=== PATIENT | female | born 1940 | race Caucasian/White ===

== ENCOUNTER 2017-07-04 18:13 | Emergency (ER) | payer MEDICARE, BC ==
[2017-07-04] MEDS ORDERED: Sodium Chloride 0.9% 10 ML Syringe FLUSH PRN ×2 (18:43→20:35)
--- NOTE | 2017-07-04 18:55 | EDM.PDOC ---
ED HPI GENERAL MEDICAL PROBLEM - General Chief Complaint: Cardiovascular Problem Stated Complaint: RAPID HEART BEAT Time Seen by Provider: 07/04/17 18:28 Source of Information: Reports: Patient History Limitations: Reports: No Limitations - History of Present Illness INITIAL COMMENTS - FREE TEXT/NARRATIVE: 77-year-old female presents for evaluation and treatment of perceived tachycardia. Patient reports that she felt she had a rapid heartbeat from around 14:00 today to 16:30. Patient denies any current symptoms. She reported associated symptoms of dizziness, lightheadedness and nausea. She states that she checked her blood pressure and it was 95/50. She did feel short of breath earlier and felt this was worse than normal. She also reports that she felt she had a heavy chest but denies any chest pain. She denies any syncope or vomiting. She currently has no chest discomfort, nausea, or lightheadedness.. Patient denies any recent illness. She denies any recent fevers, cough or cold symptoms. Patient has a past cardiac history remarkable for a triple bypass in 2004. She states that she has A. fib and congestive heart failure. She is currently on aspirin for her atrial fibrillation. Currently sees a program control analyst in [place]. Last visit was in February. Reports that she has echocardiograms done yearly. Last echocardiogram done was in February. Primary care provider is Dr. Hernandez. Onset: Today (2pm to 4:30pm) - Related Data Allergies Allergy/AdvReac Type Severity Reaction Status Date / Time No Known Allergies Allergy Verified 07/04/17 18:21 Home Meds: Home Meds Anastrozole [Arimidex] 1 mg PO BID 07/04/17 [History] Aspirin [Halfprin] 81 mg PO BEDTIME 07/04/17 [History] Calcium Carb & Citrate/Vit D3 [Calcium + D3 ER Tablet] 1 tab PO BID 07/04/17 [ History] Ezetimibe [Zetia] 10 mg PO DAILY 07/04/17 [History] Ferrous Sulfate [Iron] 650 mg PO TID 07/04/17 [History] Fish Oil/[place]-3 Fatty Acids [Fish Oil 1,000 MG] 1 gram PO BID 07/04/17 [History ] Hydroxyurea 1,000 mg PO ASDIRECTED 07/04/17 [History] Metoprolol Succinate [Toprol XL] 25 mg PO BEDTIME 07/04/17 [History] Mv-Mn/Lutein/Zeax/Bilber/Hb277 [Macular Health Formula Capsule] 1 cap PO DAILY 07/04/17 [History] Olmesartan/Hydrochlorothiazide [Benicar HCT 40-25 MG] 1 tab PO DAILY 07/04/17 [ History] Omeprazole Magnesium [Prilosec Otc] 20 mg PO BID 07/04/17 [History] amLODIPine Besylate [Norvasc] 10 mg PO BEDTIME 07/04/17 [History] atorvaSTATin [Lipitor] 40 mg PO BEDTIME 07/04/17 [History] Past Medical History HEENT History: Reports: Impaired Vision Cardiovascular History: Reports: Afib, Bypass, Heart Failure, High Cholesterol, Hypertension Respiratory History: Reports: Sleep Apnea, SOB Gastrointestinal History: Reports: GERD 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: 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: , Prolapsed Uterus Hematologic History: Reports: Blood Transfusion(s), Other (See Below) Other Hematologic History: high platlets Oncologic (Cancer) History: Reports: Breast - Past Surgical History HEENT Surgical History: Reports: Adenoidectomy, Tonsillectomy Cardiovascular Surgical History: Reports: Coronary Artery Bypass GI Surgical History: Reports: Appendectomy, Other (See Below) Other GI Surgeries/Procedures: rectum repair Female Surgical History: Reports: Other (See Below) Other Female Surgeries/Procedures: Bladder sling Social & Family History - Family History Family Medical History: Noncontributory - Tobacco Use Smoking Status *Q: Never Smoker - Caffeine Use Caffeine Use: Reports: None - Recreational Drug Use Recreational Drug Use: No ED ROS GENERAL - Review of Systems Review Of Systems: See Below Constitutional: Denies: Fever Respiratory: Reports: Shortness of Breath (chronic, no chagne). Denies: Cough Cardiovascular: Reports: Edema (chronic, no change), Lightheadedness (earlier, now resolved). Denies: Chest Pain (reports heaviness earlier, now resolved), Syncope GI/Abdominal: Reports: Nausea (earlier, now resolved). Denies: Vomiting Neurological: Denies: Syncope ED EXAM, GENERAL - Physical Exam Exam: See Below Exam Limited By: No Limitations General Appearance: Alert, WD/WN, Anxious, Obese Ears: Normal External Exam Nose: Normal Inspection Throat/Mouth: Normal Inspection, Normal Lips, Normal Voice, No Airway Compromise Respiratory/Chest: No Respiratory Distress, Lungs Clear, Normal Breath Sounds Cardiovascular: Normal Peripheral Pulses, Regular Rate, Rhythm, Systolic Murmur (grade 3) Peripheral Pulses: 2+: Radial (L), Radial (R) Extremities: Pedal Edema Neurological: Alert, Oriented, Normal Cognition Psychiatric: Normal Affect, Normal Mood, Anxious Skin Exam: Warm, Dry, Normal Color EKG INTERPRETATION EKG Date: 07/04/17 Time: 18:20 Rhythm: NSR Rate (Beats/Min): 65 [place]: Normal P-Wave: Present QRS: Normal ST-T: Normal QT: Normal EKG Interpretation Comments: NR at 65 bpm. No ischemic changes. No LAD. No LVH. Reviewed by myself and Dr. Johnson. Course - Vital Signs Last Recorded V/S: Last Vital Signs Temp 36.2 C 07/04/17 18:17 Pulse 75 07/04/17 18:17 Resp 20 07/04/17 18:17 BP 154/77 H 07/04/17 18:17 Pulse Ox 96 07/04/17 18:17 Orthostatic Blood Pressure [ 154/71 Standing] Orthostatic Blood Pressure [ 152/63 Sitting] Orthostatic Blood Pressure [ 140/61 Supine] - Orders/Labs/Meds Orders: Active Orders 24 hr Category Date Time Status Cardiac Monitoring [RC] . DIRECTED Care 07/04/17 18:40 Active EKG Documentation Completion [RC] ASDIRECTED Care 07/04/17 18:42 Active Holter Monitor 48 Hours [RC] .PRN Care 07/04/17 21:40 Active Orthostatic Vital Signs [RC] ASDIRECTED Care 07/04/17 18:40 Active Peripheral IV Care [RC] . DIRECTED Care 07/04/17 18:43 Active Chest 1V Frontal [CR] Stat Exams 07/04/17 18:40 Taken Chest PE [Ang Chest] [CT] Stat Exams 07/04/17 20:16 Taken Sodium Chloride 0.9% [Normal Saline] 100 ml Med 07/04/17 20:45 Active IV ASDIRECTED Sodium Chloride 0.9% [Saline Flush] Med 07/04/17 18:43 Active 10 ml FLUSH ASDIRECTED PRN Sodium Chloride 0.9% [Saline Flush] Med 07/04/17 20:35 Active 10 ml FLUSH ONETIME PRN Peripheral IV Insertion Adult [OM.PC] Routine Oth 07/04/17 18:43 Ordered EKG 12 Lead [EK] Stat Ther 07/04/17 18:40 Ordered Medication Orders Sodium Chloride (Normal Saline) 100 mls @ 75 mls/hr IV ASDIRECTED KATINA Last Admin: 07/04/17 21:05 Dose: 75 mls/hr Sodium Chloride (Saline Flush) 10 ml FLUSH ASDIRECTED PRN PRN Reason: Keep Vein Open Last Admin: 07/04/17 18:57 Dose: 10 ml Sodium Chloride (Saline Flush) 10 ml FLUSH ONETIME PRN PRN Reason: IV FLUSH Last Admin: 07/04/17 21:05 Dose: 10 ml Labs: Laboratory Tests 07/04/17 07/04/17 07/04/17 Range/Units 19:05 19:05 19:39 WBC 4.07 (3.98-10.04) K/mm3 RBC 2.67 L (3.98-5.22) M/mm3 Hgb 11.2 (11.2-15.7) gm/L Hct 32.2 L (34.1-44.9) % MCV 120.6 H (79.4-94.8) fl MCH 41.9 H (25.6-32.2) pg MCHC 34.8 (32.2-35.5) g/dl RDW Std Deviation 51.9 H (36.4-46.3) fL Plt Count 259 (182-369) K/mm3 MPV 10.2 (9.4-12.3) fl Neutrophils % (Manual) 72 H (40-60) % Band Neutrophils % 0 (0-10) % Lymphocytes % (Manual) 14 L (20-40) % Atypical Lymphs % 0 % Monocytes % (Manual) 13 H (2-10) % Eosinophils % (Manual) 1 (0.7-5.8) % Basophils % (Manual) 0 L (0.1-1.2) Platelet Estimate Adequate Plt Morphology Comment Normal Poikilocytosis 2+ moderate Stomatocytes 1+ slight RBC Morph Comment Not Reportable Sodium 144 (136-145) mEq/L Potassium 3.5 (3.5-5.1) mEq/L Chloride 106 (98-107) mEq/L Carbon Dioxide 29 (21-32) mEq/L Anion Gap 12.5 (5-15) BUN 17 (7-18) mg/dL Creatinine 0.8 (0.55-1.02) mg/dL Est Cr Clr Drug Dosing 54.67 mL/min Estimated GFR (MDRD) > 60 (>60) mL/min BUN/Creatinine Ratio 21.3 H (14-18) Glucose 123 H (83-115) mg/dL Calcium 8.7 (8.5-10.1) mg/dL Magnesium 2.0 (1.8-2.4) mg/dl Total Bilirubin 0.4 (0.2-1.0) mg/dL AST 16 (15-37) U/L ALT 26 (14-59) U/L Alkaline Phosphatase 54 (46-116) U/L Troponin I < 0.017 (0.00-0.056) ng/mL NT-Pro-B Natriuret Pep 254 (0-450) pg/mL Total Protein 6.5 (6.4-8.2) g/dl Albumin 3.2 L (3.4-5.0) g/dl Globulin 3.3 gm/dL Albumin/Globulin Ratio 1.0 (1-2) TSH 3rd Generation 1.597 (0.358-3.74) uIU/mL Meds: Medications Generic Name Dose Route Start Last Admin Trade Name Freq PRN Reason Stop Dose Admin Sodium Chloride 100 mls @ 75 mls/hr 07/04/17 20:45 07/04/17 21:05 Normal Saline IV 75 mls/hr ASDIRECTED KATINA Administration Sodium Chloride 10 ml 07/04/17 18:43 07/04/17 18:57 Saline Flush FLUSH 10 ml ASDIRECTED PRN Administration Keep Vein Open Sodium Chloride 10 ml 07/04/17 20:35 07/04/17 21:05 Saline Flush FLUSH 10 ml ONETIME PRN Administration IV FLUSH Discontinued Medications Generic Name Dose Route Start Last Admin Trade Name Freq PRN Reason Stop Dose Admin Iopamidol 100 ml 07/04/17 20:35 07/04/17 21:05 Isovue-370 (76%) IVPUSH 07/04/17 20:36 80 ml ONETIME ONE Administration - Radiology Interpretation Free Text/Narrative:: chest xray shows cardiomegaly. Large hiatal hernia. clips/markers to the right breast from breast cancer. CT PE impression per [facility]: 1. 11.9cm hiatal hernia. 2. Ectasia of the ascending thoracic aorta which measures 4.5cm in diameter. There is no sign of aortic dissection or thrombus. 3. 5 mm noncalcified pulmonary nodule in the right upper lobe. For low risk patients, no follow-up is necessary. For high-risk patients (smoking history or other known risk factors) an optional chest CT at 12 months could be performed. 4. Moderate atherosclerotic calcification of the coronary arteries. The heart demonstrates diffuse enlargement. Prior CABG. 5. No signs of pulmonary embolus. CT Results Date: 07/04/17 - Re-Assessments/Exams Free Text/Narrative Re-Assessment/Exam: 07/04/17 20:18 Offered patient medication for pain and nausea during her ER stay. She declined. Reviewed the lab and imaging results the patient. We were then discussing medications. She reports that she is on a new breast cancer medication called arimidex. She questions if this is causing her symptoms. Review of side effects states that this medication is at increased risk for PE.. Her vital signs have been normal while in the Heart rate mid 50s to 60s. However , with her cancer diagnosis cannot rule out this time. CT pulmonary and exam ordered. 07/04/17 21:[address] results with patient. I will have her follow up with her primary care provider regarding this 5 mm pulmonary nodule in the right upper lobe. Also have follow-up with results for 48 hour Holter monitor. We will discharge her home. She is instructed to return to the ER for symptoms change or worsen. Departure - Departure Time of Disposition: 21:39 Disposition: Home, Self-Care 01 Condition: Fair Clinical Impression: Heart palpitations Instructions: Palpitations, [id number] Referrals: Benjamin Hernandez MD [Primary Care Provider] - Forms: ED Department Discharge Additional Instructions: 48 hour Holter monitor as directed. Follow-up with Dr. Hernandez next week. Continue with your current plan of care. Please return to the ER immediately if your symptoms change or worsen. In particular, would like to see for syncope, chest pain or any other concerning symptom. - My Orders Last 24 Hours: My Active Orders 07/04/17 18:40 Cardiac Monitoring [RC] . DIRECTED Orthostatic Vital Signs [RC] ASDIRECTED Chest 1V Frontal [CR] Stat EKG 12 Lead [EK] Stat 07/04/17 18:42 EKG Documentation Completion [RC] ASDIRECTED 07/04/17 18:43 Peripheral IV Care [RC] . DIRECTED Sodium Chloride 0.9% [Saline Flush] 10 ml FLUSH ASDIRECTED PRN Peripheral IV Insertion Adult [OM.PC] Routine 07/04/17 20:16 Chest PE [Ang Chest] [CT] Stat 07/04/17 20:35 Sodium Chloride 0.9% [Saline Flush] 10 ml FLUSH ONETIME PRN 07/04/17 20:45 Sodium Chloride 0.9% [Normal Saline] 100 ml IV ASDIRECTED 07/04/17 21:40 Holter Monitor 48 Hours [RC] .PRN - Assessment/Plan Last 24 Hours: My Active Orders 07/04/17 18:40 Cardiac Monitoring [RC] . DIRECTED Orthostatic Vital Signs [RC] ASDIRECTED Chest 1V Frontal [CR] Stat EKG 12 Lead [EK] Stat 07/04/17 18:42 EKG Documentation Completion [RC] ASDIRECTED 07/04/17 18:43 Peripheral IV Care [RC] . DIRECTED Sodium Chloride 0.9% [Saline Flush] 10 ml FLUSH ASDIRECTED PRN Peripheral IV Insertion Adult [OM.PC] Routine 07/04/17 20:16 Chest PE [Ang Chest] [CT] Stat 07/04/17 20:35 Sodium Chloride 0.9% [Saline Flush] 10 ml FLUSH ONETIME PRN 07/04/17 20:45 Sodium Chloride 0.9% [Normal Saline] 100 ml IV ASDIRECTED 07/04/17 21:40 Holter Monitor 48 Hours [RC] .PRN
[2017-07-04] MEDS ORDERED: Iopamidol 755 Mg/ML 100 ML Bottle IVPUSH ONE (20:35)
[2017-07-04] MEDS ORDERED: Sodium Chloride 0.9% 100 ML IV SCH (20:45)
--- NOTE | 2017-07-05 07:29 | CR ---
Chest: Portable view of the chest was obtained. Comparison: No prior chest x-ray. Heart is enlarged. Large hiatal hernia is noted. Sternotomy is noted. Lungs are clear. Bony structures are grossly intact. Impression: 1. Mild cardiomegaly and large hiatal hernia. Diagnostic code #2
--- NOTE | 2017-07-05 07:29 | CT ---
CT chest Technique: Multiple axial sections were obtained from above the dome of the diaphragm inferiorly through the pubic symphysis. Intravenous contrast was utilized. Study has been performed as a pulmonary angiogram protocol. Comparison: No prior chest CT, prior chest x-ray performed earlier on the same day. Findings: Pulmonary arteries are moderately well-opacified. No filling defects are seen to indicate pulmonary embolism. Mediastinum and hilar regions show no adenopathy or mass. Atherosclerotic change noted within the thoracic aorta. Ascending aorta is somewhat ectatic with AP dimension of 4.5 cm. Moderate coronary artery calcification is seen. Large hiatal hernia is noted. Heart is enlarged. Visualized upper abdominal structures appear within normal limits. Small noncalcified nodule noted within the right middle lobe measuring about 5 mm. Lungs otherwise are clear. Bone window settings were reviewed which appear within normal limits for the patient's age. Impression: 1. No findings of pulmonary embolism. 2. Small right middle lobe nodule. If patient is a smoker, recommend repeat noncontrast chest CT in one year. This can be ignored if patient is not a smoker. 3. Other incidental findings as noted above. Nothing acute seen on CT study of the chest. Diagnostic code #9 I agree with preliminary report issued by [facility] ([facility] preliminary report dictated on 07/04/17, 10:29 PM Central Time)
== END 2017-07-04 22:01 | disposition home or self-care (01) ==
LOC: JD.ED 18:13
DX: R00.2 Palpitations (principal); I11.0 Hypertensive heart disease with heart failure; I50.9 Heart failure, unspecified; Z79.82 Long term (current) use of aspirin; Z79.899 Other long term (current) drug therapy
CPT/HCPCS: 36415; 71045; 71275; 80053; 83735; 83880; 84443; 84484; 85025; 93005; 93225; 93226; 99285; J7030; J7050; Q9967; 93010; 99284

== ENCOUNTER 2017-09-14 10:37 | Observation (INO) | payer MEDICARE, BC ==
[2017-09-14] MEDS ORDERED: Pantoprazole 40 MG Vial IVPUSH ONE (11:29)
[2017-09-14] MEDS ORDERED: Pantoprazole 80 MG in Sodium Chloride 0.9% 100 ML IV SCH (11:30)
--- NOTE | 2017-09-14 11:36 | EDM.PDOC ---
ED HPI GENERAL MEDICAL PROBLEM - General Chief Complaint: Abdominal Pain Stated Complaint: INTERNAL BLEEDING/SENT BY DR HERNANDEZ Time Seen by Provider: 09/14/17 10:45 - History of Present Illness INITIAL COMMENTS - FREE TEXT/NARRATIVE: Contacted by Dr. Hernandez at 10:09 that he was sending the patient in to be admitted. 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 She was seen in this ED in June 2017 for lightheadedness. A subsequent Holter monitor was negative. The patient in follow-up with Dr. Hernandez today with a complaint of lightheadedness, black stools, lower abdominal pain, the sensation that her heart is racing, and nausea without emesis, since yesterday. She also reports 2 days of dyspnea on exertion. No recent chest pain. No prior similar symptoms. Dr. Hernandez indicated that the patient's blood pressure remained stable between lying and standing, but that her heart rate increased. A CBC found her hemoglobin depressed at 8.0, hematocrit 23.5. Her hemoglobin was 11.5 in April 2017. CMP is unremarkable with exception of a BUN elevated at 40. Stool was melenic and heme positive on rectal exam. Dr. Flores was contacted, confirming that she is able to perform both EGD and colonoscopy. Here in the ED, the patient is found to be hemodynamically stable and afebrile. - Related Data Allergies Allergy/AdvReac Type Severity Reaction Status Date / Time No Known Allergies Allergy Verified 09/14/17 10:50 Home Meds: Home Meds Anastrozole [Arimidex] 1 mg PO BEDTIME 07/04/17 [History] Aspirin [Halfprin] 81 mg PO BEDTIME 07/04/17 [History] Calcium Carb & Citrate/Vit D3 [Calcium + D3 ER Tablet] 1 tab PO BID 07/04/17 [ History] Ezetimibe [Zetia] 10 mg PO DAILY 07/04/17 [History] Ferrous Sulfate [Iron] 325 mg PO BEDTIME 07/04/17 [History] Fish Oil/[place]-3 Fatty Acids [Fish Oil 1,000 MG] 1 gram PO DAILY 07/04/17 [ History] Hydroxyurea 1,000 mg PO Q48H 07/04/17 [History] Metoprolol Succinate [Toprol XL] 50 mg PO BEDTIME 07/04/17 [History] Mv-Mn/Lutein/Zeax/Bilber/Hb277 [Macular Health Formula Capsule] 1 cap PO DAILY 07/04/17 [History] Olmesartan/Hydrochlorothiazide [Benicar HCT 40-25 MG] 1 tab PO DAILY 07/04/17 [ History] Omeprazole Magnesium [Prilosec Otc] 20 mg PO BID 07/04/17 [History] amLODIPine Besylate [Norvasc] 10 mg PO BEDTIME 07/04/17 [History] atorvaSTATin [Lipitor] 40 mg PO BEDTIME 07/04/17 [History] Hydroxyurea [Hydrea] 1,500 mg PO Q48H 09/14/17 [History] Triamcinolone Acetonide [Kenalog 0.1% Crm] 1 applic TOP BID 09/14/17 [History] Past Medical History HEENT History: Reports: Impaired Vision Cardiovascular History: Reports: CAD, High Cholesterol, Hypertension Respiratory History: Reports: Sleep Apnea (on nightly CPAP) Gastrointestinal History: Reports: GERD 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: , Prolapsed Uterus Endocrine/Metabolic History: Reports: Obesity/BMI 30+ Hematologic History: Reports: Blood Transfusion(s), Other (See Below) ( Essential thrombocytosis) Oncologic (Cancer) History: Reports: Breast (right) - Past Surgical History HEENT Surgical History: Reports: Adenoidectomy, Tonsillectomy Cardiovascular Surgical History: Reports: Coronary Artery Bypass (x 3 vessel, 2004) GI Surgical History: Reports: Appendectomy Female Surgical History: Reports: Other (See Below) (Bladder suspension) Oncologic Surgical History: Reports: Lumpectomy (right, + RTx) Social & Family History - Family History Family Medical History: Noncontributory - Tobacco Use Smoking Status *Q: Never Smoker Second Hand Smoke Exposure: No - Caffeine Use Caffeine Use: Reports: Tea - Alcohol Use Alcohol Use History: No - Recreational Drug Use Recreational Drug Use: No - Living Situation & Occupation Living situation: Reports: , with Spouse Occupation: Retired ED ROS GENERAL - Review of Systems Review Of Systems: ROS reveals no pertinent complaints other than HPI. ED EXAM, GI/ABD - Physical Exam Exam: See Below Exam Limited By: No Limitations General Appearance: Alert, WD/WN, No Apparent Distress Eyes: Bilateral: Normal Appearance, EOMI Ears: Normal External Exam, Hearing Grossly Normal Nose: Normal Inspection, No Blood Throat/Mouth: Normal Inspection, Normal Lips, Normal Voice, No Airway Compromise Head: Atraumatic, Normocephalic Neck: Normal Inspection, Full Range of Motion Respiratory/Chest: No Respiratory Distress, Lungs Clear, Normal Breath Sounds, No Accessory Muscle Use Cardiovascular: Normal Peripheral Pulses, Regular Rate, Rhythm, No Gallop, No JVD, No Murmur, No Rub GI/Abdominal Exam: Normal Bowel Sounds, Soft, Non-Tender, No Organomegaly, No Distention, No Abnormal Bruit, No Mass, Other (Obese) (Female) Exam: Deferred Back Exam: Normal Inspection, Full Range of Motion, NT Extremities: Normal Inspection, Normal Range of Motion, No Pedal Edema, Normal Capillary Refill Neurological: Alert, Oriented, Normal Cognition, No Motor/Sensory Deficits Psychiatric: Normal Affect Skin Exam: Warm, Dry, Intact, Normal Color, No Rash Course - Vital Signs Last Recorded V/S: Last Vital Signs Temp 36.1 C 09/14/17 10:47 Pulse 75 09/14/17 10:47 Resp 18 09/14/17 10:47 BP 149/66 H 09/14/17 10:47 Pulse Ox 98 09/14/17 10:47 - Orders/Labs/Meds Orders: Active Orders 24 hr Category Date Time Status TYPE AND SCREEN [BBK] Stat Lab 09/14/17 11:31 Ordered Pantoprazole [ProTONIX IV] 80 mg Med 09/14/17 11:30 Ordered Sodium Chloride 0.9% [Normal Saline] 100 ml IV Q10H Medication Orders Pantoprazole Sodium 80 mg/ (Sodium Chloride) 100 mls @ 10 mls/hr IV Q10H KATINA Meds: Medications Generic Name Dose Route Start Last Admin Trade Name Freq PRN Reason Stop Dose Admin Pantoprazole Sodium 80 mg/ 100 mls @ 10 mls/hr 09/14/17 11:30 Sodium Chloride IV Q10H KATINA 8 MG/HR Discontinued Medications Generic Name Dose Route Start Last Admin Trade Name Freq PRN Reason Stop Dose Admin Pantoprazole Sodium 80 mg 09/14/17 11:29 Protonix Iv IVPUSH 09/14/17 11:30 .BOLUS ONE - Re-Assessments/Exams Free Text/Narrative Re-Assessment/Exam: 09/14/17 11:[address] Chavira at 11:25. She accepts the patient for admission. She would like us to type and screen the patient. 09/14/17 11:39 Protonix 80 mg IVP followed by 8 mg/hr drip has been ordered. The patient will receive 2 large-bore IVs prior to going to the floor. 09/14/17 11:[address] Flores, who is in-house. She would like to take the patient to the OR for EGD right away. 09/14/17 11:46 Dr. Chavira updated on the above plan. Departure - Departure Time of Disposition: 11:32 Disposition: Admitted As Inpatient 68 Condition: Fair Clinical Impression: Upper GI bleed, Anemia - Discharge Information - My Orders Last 24 Hours: My Active Orders 09/14/17 11:30 Pantoprazole [ProTONIX IV] 80 mg Sodium Chloride 0.9% [Normal Saline] 100 ml IV Q10H 09/14/17 11:31 TYPE AND SCREEN [BBK] Stat - Assessment/Plan Last 24 Hours: My Active Orders 09/14/17 11:30 Pantoprazole [ProTONIX IV] 80 mg Sodium Chloride 0.9% [Normal Saline] 100 ml IV Q10H 09/14/17 11:31 TYPE AND SCREEN [BBK] Stat
--- NOTE | 2017-09-14 12:00 | PCM.PREANE ---
Preanesthetic Assessment - Procedure Proposed Procedure: Patient saw dr. Hernandez today for normal visit. Complains of dizziness and black tarry stools. Dr. Flores here seeing patient. - Anesthesia/Transfusion/Family Hx Type of Anesthesia Reaction: Excessive Nausea/Vomiting Family History of Anesthesia Reaction: No Transfusion History: Prior Transfusion Without Reaction - Review of Systems General: Fatigue Pulmonary: Shortness of Breath (since cabg) Cardiovascular: No Symptoms Gastrointestinal: No Symptoms, Diarrhea (loose stools yesterday) Neurological: No Symptoms - Physical Assessment NPO Status Date: 09/14/17 NPO Status Time: 08:00 (orange juice, egg toast) O2 Sat by Pulse Oximetry: 98 Respiratory Rate: 18 Vital Signs: Last Vital Signs Temp 97 F 09/14/17 10:47 Pulse 75 09/14/17 10:47 Resp 18 09/14/17 10:47 BP 149/66 H 09/14/17 10:47 Pulse Ox 98 09/14/17 10:47 Height: 5 ft 5 in Weight: 97.522 kg ASA Class: 3E Mental Status: Alert & Oriented x3 Airway Class: Mallampati = 1 Dentition: Reports: Broken Tooth/Teeth, Missing Tooth/Teeth Thyro-Mental Finger Breadths: 3 Mouth Opening Finger Breadths: 3 ROM/Head Extension: Full Lungs: Clear to Auscultation, Normal Respiratory Effort Cardiovascular: Regular Rate, Regular Rhythm - Allergies Allergies/Adverse Reactions: Allergies Allergy/AdvReac Type Severity Reaction Status Date / Time No Known Allergies Allergy Verified 09/14/17 10:50 - Blood Blood Available: Yes - Anesthesia Plan Beta Dayday: Metoprolol Med Last Dose Date: 09/13/17 Med Last Dose Time: 20:00 - Acknowledgements Anesthesia Type Planned: MAC Pt an Appropriate Candidate for the Planned Anesthesia: Yes Alternatives and Risks of Anesthesia Discussed w Pt/Guardian: Yes Pt/Guardian Understands and Agrees with Anesthesia Plan: Yes PreAnesthesia Questionnaire HEENT History: Reports: Impaired Vision Cardiovascular History: Reports: CAD, High Cholesterol, Hypertension Respiratory History: Reports: Sleep Apnea (on nightly CPAP) Gastrointestinal History: Reports: GERD 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: Reports: , Prolapsed Uterus Endocrine/Metabolic History: Reports: Obesity/BMI 30+ Hematologic History: Reports: Blood Transfusion(s), Other (See Below) ( Essential thrombocytosis) Other Hematologic History: high platlets Oncologic (Cancer) History: Reports: Breast (right- radiation and surgery) - Past Surgical History HEENT Surgical History: Reports: Adenoidectomy, Tonsillectomy Cardiovascular Surgical History: Reports: Coronary Artery Bypass (x 3 vessel, 2005) GI Surgical History: Reports: Appendectomy Female Surgical History: Reports: Other (See Below) (Bladder suspension) Oncologic Surgical History: Reports: Lumpectomy (right, + RTx) - SUBSTANCE USE Smoking Status *Q: Never Smoker Tobacco Use Within Last Twelve Months: No Second Hand Smoke Exposure: No Days Per Week of Alcohol Use: 0 Recreational Drug Use History: No - HOME MEDS Home Medications: Home Meds Anastrozole [Arimidex] 1 mg PO BEDTIME 07/04/17 [History] Aspirin [Halfprin] 81 mg PO BEDTIME 07/04/17 [History] Calcium Carb & Citrate/Vit D3 [Calcium + D3 ER Tablet] 1 tab PO BID 07/04/17 [ History] Ezetimibe [Zetia] 10 mg PO DAILY 07/04/17 [History] Ferrous Sulfate [Iron] 325 mg PO BEDTIME 07/04/17 [History] Fish Oil/[place]-3 Fatty Acids [Fish Oil 1,000 MG] 1 gram PO DAILY 07/04/17 [ History] Hydroxyurea 1,000 mg PO Q48H 07/04/17 [History] Metoprolol Succinate [Toprol XL] 50 mg PO BEDTIME 07/04/17 [History] Mv-Mn/Lutein/Zeax/Bilber/Hb277 [Macular Health Formula Capsule] 1 cap PO DAILY 07/04/17 [History] Olmesartan/Hydrochlorothiazide [Benicar HCT 40-25 MG] 1 tab PO DAILY 07/04/17 [ History] Omeprazole Magnesium [Prilosec Otc] 20 mg PO BID 07/04/17 [History] amLODIPine Besylate [Norvasc] 10 mg PO BEDTIME 07/04/17 [History] atorvaSTATin [Lipitor] 40 mg PO BEDTIME 07/04/17 [History] Hydroxyurea [Hydrea] 1,500 mg PO Q48H 09/14/17 [History] Triamcinolone Acetonide [Kenalog 0.1% Crm] 1 applic TOP BID 09/14/17 [History] - CURRENT (IN HOUSE) MEDS Current Meds: Current Medications Pantoprazole Sodium 80 mg/ (Sodium Chloride) 100 mls @ 10 mls/hr IV Q10H KATINA Discontinued Medications Pantoprazole Sodium (Protonix Iv) 80 mg IVPUSH .BOLUS ONE Stop: 09/14/17 11:30
[2017-09-14] MEDS ORDERED: Lidocaine 1% 4 ML ONE (13:33)
[2017-09-14] MEDS ORDERED: fentaNYL 100 MCG/2 ML SDV ONE (13:33)
[2017-09-14] MEDS ORDERED: Propofol 200 MG/20 ML SDV ONE (13:33)
[2017-09-14] MEDS ORDERED: Lactated Ringers 1,000 ML ONE (13:38)
[2017-09-14] MEDS ORDERED: Ondansetron 4 MG/2 ML SDV ONE (14:18)
--- NOTE | 2017-09-14 14:57 | CONS ---
CONSULTING PHYSICIAN: Leona Flores MD DATE OF CONSULTATION: 09/14/2017 CHIEF COMPLAINT: GI bleed. HISTORY OF PRESENT ILLNESS: Ms. Shannon Mejia is a most pleasant 77-year-old female who yesterday felt a little odd. She said she was a little bit dizzy and just did not feel right. At that time, she had 4 black stools. 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 She also had an episode this morning. She subsequently was seen by her regular family physician for evaluation. Of note, the patient denies ever having any black tarry stools in the past. She states she has had no fainting with this episode and has no other history of bruising or bleeding from her gums. She states that the only medication that she has been taking that could possibly cause bleeding is aspirin. She otherwise on no anticoagulation. She states that she did have a colonoscopy years ago, where a small polyp was removed. She also had an upper endoscopy years ago, which she said was basically unremarkable. Currently, she states she has no pain and she states she feels better and is less lightheaded. When the patient arrived here, her vital signs were stable. She had hemoglobin which was drawn in June and . Having said that, today it was 8. CURRENT MEDICATIONS: Lipitor, Norvasc, omeprazole, Benicar, vitamins, and aspirin as I said. PAST SURGICAL HISTORY: She had a tonsillectomy, appendectomy. In 2004, she had an open heart surgery. She had a bladder suspension. SOCIAL HISTORY: She has 3 children, alive, and well. Smoking, negative. Alcohol, negative. She is and her is at the bedside. ALLERGIES: To tape. FAMILY HISTORY: She has 3 brothers, however, one within the last year of a brain tumor. The patient's history is also significant that she had early stage breast cancer, for which she was treated with lumpectomy and radiation. She stated that her nodes were negative. REVIEW OF SYSTEMS: NEURO/PSYCHIATRY: She denies any seizures or strokes. No blurred or double vision. ENDOCRINE: She has no history of thyroid, diabetes, or hepatitis. CARDIAC: She has chronic shortness of breath, she states this has been the same since her heart surgery. She states that she can walk about a quarter of a mile. She has no chest pain or heaviness of her chest. ABDOMEN: No abdominal pain as stated before and she has now had bleeding per rectum. GENITOURINARY: She denies any blood in her urine. EXTREMITIES: She has swelling of her ankles, most notably at the end of the day, but by morning it is improved. PHYSICAL EXAMINATION: GENERAL: She is awake and alert. VITAL SIGNS: She is not tachycardiac with pulse of 75. Her blood pressure is 149/66. LUNGS: Clear. HEART: She has a very soft systolic murmur, but it appears to be regular. ABDOMEN: Totally soft. Nontender. There is no gross organomegaly. EXTREMITIES: Ankles are free of edema. SKIN: There is no bruising. IMPRESSION AND PLAN: 1. Indeed, this patient has had a significant GI bleeding, but I would propose to the family as a beginning starting up by doing an upper endoscopy to see if there is anything such as ulcers. I stated to the family if that does indeed look normal, then I would proceed to do a lower endoscopy. I clearly discussed the risks and benefits to include, but not limited to, bleeding, infection, heart attack, , injury to structures not intended, and even possibly not even finding the source of the bleeding as there are many other areas within the GI tract where such a problem could occur. I offered a second opinion and they declined and they wished to proceed. 2. History of breast cancer, which is currently under the hormonal therapy. 3. Acute blood loss anemia. We will make sure she is typed and crossed in case if we need to transfuse. I did discuss with her she did say that she would like to be transfused if necessary. I also discussed with her that we will biopsy when we do the upper endoscopy for H. pylori. MMODAL /[id number]
[2017-09-14] MEDS ORDERED: Ondansetron 4 MG Tab.DIS PO PRN (16:16)
[2017-09-14] MEDS ORDERED: Albuterol/Ipratropium 3.0-0.5 MG/3 ML Neb Soln NEB PRN (16:16)
[2017-09-14] MEDS ORDERED: Ondansetron 4 MG/2 ML SDV IV PRN (16:16)
[2017-09-14] MEDS ORDERED: Metoprolol Tartrate 5 MG/5 ML SDV IVPUSH PRN (16:21)
[2017-09-14] MEDS ORDERED: hydrALAZINE 20 MG/ML SDV IVPUSH PRN (16:21)
--- NOTE | 2017-09-14 16:26 | PCM.HP ---
H&P History of Present Illness - General Date of Service: 09/14/17 Admit Problem/Dx: Admission Diagnosis/Problem Admission Diagnosis/Problem Gastrointestinal hemorrhage Source of Information: Patient, Provider, RN, RN Notes Reviewed, Significant Other History Limitations: Reports: No Limitations - History of Present Illness Initial Comments - Free Text/Narative: Shannon Mejia is a 77 yo female who went for a visit with here PCP, Dr. Hernandez at [facility] today (09/14/17). She was reportedly following up after being seen in the ED in June 2017 for lightheadedness and a negative Holter monitor after ED discharge. She reported to him having lightheadedness, melonic stools lower abdominal pain, palpitations, and nausea since yesterday (09/03/17) . She has not vomited. She also reports a 2 day history of dyspnea on exertion. She denies any chest pain, history of melonic or bloody stools, or prior similar symptoms. It is reported that Dr. Hernandez found her to have stable BP between lying and standing but her HR did increase. Labs were drawn at [place] and presented with the patient. WBC was .2. Hemoglobin was 8.0, hematocrit 23.5. She is macrocytic. Platelet surgery to 329,000, neutrophils are normal at 64%. Lipid panel was obtained total cholesterol is 85, triglyceride 150, HDL is low at 26, LDL is good at 29. BMP was obtained shows a glucose at 124. BUN is high at 40. Creatinine 0.6. EGFR 64. Sodium 139. Potassium 3.9. Chloride 110. CO2 is 28. Anion gap is 5. Calcium 8.6. In the ED temp was 36.1 C. Pulse 75. Respirations 18. BP 149/66. Pulse ox 98%. She was given 80 mg IV protonix bolus and started on a 80mg protonix drip. Type and screen was preformed. Dr. Flores, general surgeon took the patient back to the endoscopy room and a EGD was preformed. Multiple bleeding lesions were identified and biopsies were obtained. Colonoscopy was not preformed as bleeding location was located. She does carry a history of: impaired vision, CAD, HLD, HTN, Sleep apnea on home CPAP, GERD, prolapsed uterus, obesity, essential thrombocytosis, right breast cancer, CABG x3 in 2004. She was never a smoker. She reports having her last colonoscopy around 10 years ago and having had EGDs in the past. She reports these were essentially normal although she has had polyps removed in the past. She states at one time she was having endoscopy every three years, which decreased to every five, and now have been longer. These were all preformed in [facility]. She was never a smoker. She was subsequently admitted to the medical floor under observation status with telemetry. She is a full code. Her PCP is Dr. Hernandez at [facility] although she does report seeing some specialists in [place] and [place]. - Related Data Allergies/Adverse Reactions: Allergies Allergy/AdvReac Type Severity Reaction Status Date / Time No Known Allergies Allergy Verified 09/14/17 10:50 Home Medications: Home Meds Anastrozole [Arimidex] 1 mg PO BEDTIME 07/04/17 [History] Aspirin [Halfprin] 81 mg PO BEDTIME 07/04/17 [History] Calcium Carb & Citrate/Vit D3 [Calcium + D3 ER Tablet] 1 tab PO BID 07/04/17 [ History] Ezetimibe [Zetia] 10 mg PO DAILY 07/04/17 [History] Ferrous Sulfate [Iron] 325 mg PO BEDTIME 07/04/17 [History] Fish Oil/[place]-3 Fatty Acids [Fish Oil 1,000 MG] 1 gram PO DAILY 07/04/17 [ History] Hydroxyurea 1,000 mg PO Q48H 07/04/17 [History] Metoprolol Succinate [Toprol XL] 50 mg PO BEDTIME 07/04/17 [History] Mv-Mn/Lutein/Zeax/Bilber/Hb277 [Macular Health Formula Capsule] 1 cap PO DAILY 07/04/17 [History] Olmesartan/Hydrochlorothiazide [Benicar HCT 40-25 MG] 1 tab PO DAILY 07/04/17 [ History] Omeprazole Magnesium [Prilosec Otc] 20 mg PO BID 07/04/17 [History] amLODIPine Besylate [Norvasc] 10 mg PO BEDTIME 07/04/17 [History] atorvaSTATin [Lipitor] 40 mg PO BEDTIME 07/04/17 [History] Hydroxyurea [Hydrea] 1,500 mg PO Q48H 09/14/17 [History] Triamcinolone Acetonide [Kenalog 0.1% Crm] 1 applic TOP BID 09/14/17 [History] Past Medical History HEENT History: Reports: Impaired Vision Cardiovascular History: Reports: CAD, High Cholesterol, Hypertension Respiratory History: Reports: Sleep Apnea (on nightly CPAP) Gastrointestinal History: Reports: GERD 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: , Prolapsed Uterus Endocrine/Metabolic History: Reports: Obesity/BMI 30+ Hematologic History: Reports: Blood Transfusion(s), Other (See Below) ( Essential thrombocytosis) Other Hematologic History: high platlets Oncologic (Cancer) History: Reports: Breast (right) - Past Surgical History HEENT Surgical History: Reports: Adenoidectomy, Tonsillectomy Cardiovascular Surgical History: Reports: Coronary Artery Bypass (x 3 vessel, 2004) GI Surgical History: Reports: Appendectomy Female Surgical History: Reports: Other (See Below) (Bladder suspension) Oncologic Surgical History: Reports: Lumpectomy (right, + RTx) Social & Family History - Family History Family Medical History: Noncontributory - Tobacco Use Smoking Status *Q: Never Smoker Second Hand Smoke Exposure: No - Caffeine Use Caffeine Use: Reports: Tea - Alcohol Use Days Per Week of Alcohol Use: 0 - Recreational Drug Use Recreational Drug Use: No - Living Situation & Occupation Living situation: Reports: , with Spouse Occupation: Retired H&P Review of Systems - Review of Systems: Review Of Systems: See Below General: Reports: Malaise, Weakness, Fatigue. Denies: Fever, Chills, Decreased Appetite HEENT: Reports: No Symptoms. Denies: Ear Pain, Eye Pain, Hearing Changes Pulmonary: Reports: No Symptoms. Denies: Shortness of Breath, Wheezing, Pleuritic Chest Pain, Cough, Sputum Cardiovascular: Reports: Palpitations, Dyspnea on Exertion, Edema (chronic), Lightheadedness. Denies: Chest Pain, Syncope, Claudication Gastrointestinal: Reports: Melena, Nausea, Other (past LLQ abdominal pain but none currently ). Denies: Abdominal Pain, Anorexia, Constipation, Diarrhea, Distension, Hematemesis, Hematochezia, Vomiting Genitourinary: Reports: No Symptoms. Denies: Dysuria, Frequency, Burning, Pain Musculoskeletal: Reports: No Symptoms Skin: Reports: No Symptoms Psychiatric: Reports: No Symptoms Neurological: Reports: No Symptoms Hematologic/Lymphatic: Reports: Anemia Immunologic: Reports: No Symptoms Exam - Exam Exam: See Below - Vital Signs Vital Signs: Last Vital Signs Temp 98.2 F 03/30/18 15:00 Pulse 75 09/14/17 10:47 Resp 20 09/14/17 15:00 BP 131/45 L 09/14/17 15:00 Pulse Ox 92 L 09/14/17 15:00 Weight: 215 lb - Exam General: Alert, Oriented, Cooperative. No: Mild Distress HEENT: PERRLA, Hearing Intact, Mucosa Moist & [place], Nares Patent, Normal Nasal Septum, Posterior Pharynx Clear, Conjunctiva Clear, EOMI, EACs Clear, TMs Clear Neck: Supple, Trachea Midline. No: JVD Lungs: Clear to Auscultation, Normal Respiratory Effort, Decreased Breath Sounds. No: Rales, Rhonchi, Wheezing Cardiovascular: Regular Rate, Regular Rhythm GI/Abdominal Exam: Normal Bowel Sounds, Soft, Non-Tender, No Organomegaly, No Distention, No Abnormal Bruit, No Mass, Pelvis Stable (Female) Exam: Deferred Rectal (Female) Exam: Deferred Back Exam: Normal Inspection, Full Range of Motion Extremities: Normal Inspection, Normal Range of Motion, Non-Tender, No Pedal Edema, Normal Capillary Refill Peripheral Pulses: 2+: Radial (L), Radial (R), Posterior Tibial (L), Posterior Tibial (R), Dorsalis Pedis (L), Dorsalis Pedis (R) Skin: Warm, Dry, Intact Neurological: Cranial Nerves Intact (Grossly) Neuro Extensive - Mental Status: Alert, Oriented x3, Normal Mood/Affect, Normal Cognition, Memory Intact Psychiatric: Alert, Normal Affect, Normal Mood - Patient Data Lab Results Last 24 hrs: Laboratory Results - last 24 hr 09/14/17 Range/Units 11:56 Blood Type A POSITIVE Gel Antibody Screen Negative Crossmatch See Detail - Problem List (1) Upper GI bleed SNOMED Code(s): 45120878 ICD Code: K92.2 - GASTROINTESTINAL HEMORRHAGE, UNSPECIFIED Status: Acute Priority: High Current Visit: Yes (2) Anemia SNOMED Code(s): 331037840 ICD Code: D64.9 - ANEMIA, UNSPECIFIED Status: Acute Priority: High Current Visit: Yes Qualifiers: Anemia type: unspecified type Qualified Code(s): D64.9 - Anemia, unspecified (3) HLD (hyperlipidemia) SNOMED Code(s): 37071519 ICD Code: E78.5 - HYPERLIPIDEMIA, UNSPECIFIED Status: Chronic Priority: Low Current Visit: No Qualifiers: Hyperlipidemia type: unspecified Qualified Code(s): E78.5 - Hyperlipidemia , unspecified (4) HTN (hypertension) SNOMED Code(s): 34390208 ICD Code: I10 - ESSENTIAL (PRIMARY) HYPERTENSION Status: Chronic Priority : Low Current Visit: No Qualifiers: Hypertension type: unspecified Qualified Code(s): I10 - Essential (primary ) hypertension (5) Sleep apnea treated with nocturnal BiPAP SNOMED Code(s): 49972594 ICD Code: G47.33 - OBSTRUCTIVE SLEEP APNEA (ADULT) (PEDIATRIC) Status: Chronic Priority: Medium Current Visit: Yes (6) GERD (gastroesophageal reflux disease) SNOMED Code(s): 710548899 ICD Code: K21.9 - GASTRO-ESOPHAGEAL REFLUX DISEASE WITHOUT ESOPHAGITIS Status: Chronic Priority: Low Current Visit: No Qualifiers: Esophagitis presence: esophagitis presence not specified Qualified Code(s) : K21.9 - Gastro-esophageal reflux disease without esophagitis (7) Obesity (BMI 30-39.9) SNOMED Code(s): 350408824, 370005797 ICD Code: E66.9 - OBESITY, UNSPECIFIED Status: Chronic Priority: Medium Current Visit: Yes (8) CAD (coronary artery disease) SNOMED Code(s): 04393701 ICD Code: I25.10 - ATHSCL HEART DISEASE OF [place] CORONARY ARTERY W/O ANG PCTRS Status: Chronic Priority: Medium Current Visit: No Qualifiers: Coronary Disease-Associated Artery/Lesion type: unspecified vessel or lesion type [place] vs. transplanted heart: [place] heart Associated angina: angina presence unspecified Qualified Code(s): I25.10 - Atherosclerotic heart disease of [place] coronary artery without angina pectoris (9) History of coronary artery bypass graft x 3 SNOMED Code(s): 506715650, 059950968 ICD Code: Z95.1 - PRESENCE OF AORTOCORONARY BYPASS GRAFT Status: Chronic Priority: Medium Current Visit: No (10) Breast cancer SNOMED Code(s): 423932459 ICD Code: C50.919 - MALIGNANT NEOPLASM OF UNSP SITE OF UNSPECIFIED FEMALE BREAST Status: Chronic Priority: Medium Current Visit: Yes Qualifiers: Breast location: unspecified site of breast Estrogen receptor status: unspecified Patient sex: female Laterality: right Qualified Code(s): C50.911 - Malignant neoplasm of unspecified site of right female breast Problem List Initiated/Reviewed/Updated: Yes Orders Last 24hrs: Active Orders 24 hr Category Date Time Status Patient Status [ADT] Routine ADT 09/14/17 15:33 Active Cardiac Monitoring [RC] CONTINUOUS Care 09/14/17 16:18 Ordered Communication Order [RC] ROUTINE Care 09/14/17 14:26 Active Height and Weight [RC] DAILY Care 09/14/17 16:16 Ordered Intake and Output [RC] QSHIFT Care 09/14/17 16:18 Ordered Notify Provider Consults [RC] ASDIRECTED Care 09/14/17 15:43 Active Oxygen Therapy [RC] ASDIRECTED Care 09/14/17 14:26 Active Pulse Oximetry [RC] ASDIRECTED Care 09/14/17 14:26 Active Pulse Oximetry [RC] PRN Care 09/14/17 16:18 Ordered RT Aerosol Therapy [RC] ASDIRECTED Care 09/14/17 16:20 Ordered Up With Assistance [RC] ASDIRECTED Care 09/14/17 16:16 Ordered VTE/DVT Education [RC] PER UNIT ROUTINE Care 09/14/17 16:16 Ordered Vital Signs [RC] Q15M Care 09/14/17 14:26 Active Vital Signs [RC] Q4H Care 09/14/17 16:16 Ordered Consult to Physician [CONS] Routine Cons 09/14/17 15:43 Active Consult to Project Architect [CONS] Routine Cons 09/14/17 16:16 Ordered Consult to Spiritual Care [CONS] Routine Cons 09/14/17 16:16 Ordered OT Evaluation and Treatment [CONS] Routine Cons 09/14/17 16:16 Ordered PT Evaluation and Treatment [CONS] Routine Cons 09/14/17 16:16 Ordered Clear Liquid Diet [DIET] Diet 09/14/17 Dinner Active BASIC METABOLIC PANEL,BMP [CHEM] AM Lab 09/15/17 05:11 Ordered BASIC METABOLIC PANEL,BMP [CHEM] AM Lab 09/16/17 05:11 Ordered BASIC METABOLIC PANEL,BMP [CHEM] AM Lab 09/17/17 05:11 Ordered BASIC METABOLIC PANEL,BMP [CHEM] AM Lab 09/18/17 05:11 Ordered CBC WITH AUTO DIFF [HEME] AM Lab 09/15/17 05:11 Ordered CBC WITH AUTO DIFF [HEME] AM Lab 09/16/17 05:11 Ordered CBC WITH AUTO DIFF [HEME] AM Lab 09/17/17 05:11 Ordered CBC WITH AUTO DIFF [HEME] AM Lab 09/18/17 05:11 Ordered CRP [C-REACTIVE PROTEIN] [CHEM] AM Lab 09/15/17 05:11 Ordered CRP [C-REACTIVE PROTEIN] [CHEM] AM Lab 09/16/17 05:11 Ordered CRP [C-REACTIVE PROTEIN] [CHEM] AM Lab 09/17/17 05:11 Ordered CRP [C-REACTIVE PROTEIN] [CHEM] AM Lab 09/18/17 05:11 Ordered MAGNESIUM [CHEM] AM Lab 09/15/17 05:11 Ordered MAGNESIUM [CHEM] AM Lab 09/16/17 05:11 Ordered MAGNESIUM [CHEM] AM Lab 09/17/17 05:11 Ordered MAGNESIUM [CHEM] AM Lab 09/18/17 05:11 Ordered PRO B-TYPE NATRIUR PEPT,BNPPRO [CHEM] Routine Lab 09/15/17 05:11 Ordered RED BLOOD CELLS LP [BBK] Routine Lab 09/14/17 15:46 Ordered TYPE AND SCREEN [BBK] Stat Lab 09/14/17 11:56 Results Albuterol/Ipratropium [DuoNeb 3.0-0.5 MG/3 ML] Med 09/14/17 16:16 Ordered 3 ml NEB Q4H PRN Metoprolol Tartrate [Lopressor] Med 09/14/17 16:21 Ordered 5 mg IVPUSH Q4H PRN Ondansetron [Zofran ODT] Med 09/14/17 16:16 Ordered 4 mg PO Q6H PRN Ondansetron [Zofran] Med 09/14/17 16:16 Ordered 4 mg IV Q6H PRN Pantoprazole [ProTONIX IV] Med 09/14/17 16:30 Ordered 40 mg IVPUSH Q12H Pantoprazole [ProTONIX IV] 80 mg Med 09/14/17 11:30 Active Sodium Chloride 0.9% [Normal Saline] 100 ml IV Q10H Sucralfate [Carafate] Med 09/14/17 16:30 Ordered 1 gm PO Q6H hydrALAZINE [Apresoline] Med 09/14/17 16:21 Ordered 10 mg IVPUSH Q6H PRN Schedule Procedure [COMM] Routine Oth 09/14/17 12:01 Ordered Sequential Compression Device [OM.PC] Per Unit Routine Oth 09/14/17 16:19 Ordered Transfuse Red Blood Cells [COMM] Routine Oth 09/14/17 15:46 Ordered Resuscitation Status Routine Resus Stat 09/14/17 16:16 Ordered Medication Orders Albuterol/Ipratropium (Duoneb 3.0-0.5 Mg/3 Ml) 3 ml NEB Q4H PRN PRN Reason: Shortness Of Breath/wheezing Hydralazine HCl (Apresoline) 10 mg IVPUSH Q6H PRN PRN Reason: Hypertension Pantoprazole Sodium 80 mg/ (Sodium Chloride) 100 mls @ 10 mls/hr IV Q10H KATINA Last Admin: 09/14/17 12:25 Dose: 8 mg/hr, 10 mls/hr Metoprolol Tartrate (Lopressor) 5 mg IVPUSH Q4H PRN PRN Reason: Tachycardia Ondansetron HCl (Zofran Odt) 4 mg PO Q6H PRN PRN Reason: nausea, able to take PO Ondansetron HCl (Zofran) 4 mg IV Q6H PRN PRN Reason: Nausea/Vomiting Pantoprazole Sodium (Protonix Iv) 40 mg IVPUSH Q12H KATINA Sucralfate (Carafate) 1 gm PO Q6H KATINA Assessment/Plan Comment:: I/P: Acute: Upper GI Bleed -Reports weakness, fatigue, abdominal pain, and melonic stools over past 2 days -Patient went to see Dr. Hernandez at [facility] (09/14/17) and labs were drawn -Hgb 8.0 -Hct 23.5 -Dr. Flores consulted in ED - EGD preformed 09/14/17 with multiple bleeding lesions noted, biopsies taken -PT/INR/APTT ordered -Clear liquid diet -Protonix IV -Carafate as ordered -Dr. Flores consulted -Hold ASA Anemia -2/2 above -Reports H/H in june and -Type and screen in ED -2 units to be transfused 09/14/17 -20mg IVP lasix after each unit -Monitor AM labs Chronic: CAD HLD HTN Sleep apnea on home CPAP GERD Prolapsed uterus Obesity Essential thrombocytosis with prior blood transfusions Right breast cancer - on hydroxyurea and anastrozole currently CABG x3 in 2004 Plan: Admit to medical floor, observation status on telemetry PT/OT SW/CM for discharge planning Routine AM labs Other orders as indicated above Spiritual care consult DVT/PE prophylaxis: SCDs GI prophylaxis: PPIs Code Status: Full Code; PCP: Dr. Hernandez at [facility]. She does see several specialists from [place] and [place] as well.
[2017-09-14] MEDS ORDERED: Sodium Chloride 0.9% 250 ML IV SCH (17:00)
[2017-09-14] MEDS: Sucralfate Suspension 1 GM/10 ML Cup PO SCH ×2 (17:13→23:30)
[2017-09-14] MEDS ORDERED: Pantoprazole 40 MG Vial IVPUSH SCH (18:00)
[2017-09-14] MEDS ORDERED: Furosemide 20 MG/2 ML VIAL IVPUSH ONE ×2 (19:00→19:07)
[2017-09-14] MEDS ORDERED: Magnesium Oxide 400 MG Tab PO ONE (19:33)
[2017-09-14] MEDS ORDERED: Ferrous Sulfate 325 MG Tab PO SCH (21:00)
[2017-09-14] MEDS ORDERED: amLODIPine 10 MG Tab PO SCH (21:00)
[2017-09-14] MEDS ORDERED: Metoprolol Succinate 50 MG Tab.ER PO SCH (21:00)
[2017-09-14] MEDS ORDERED: Anastrozole 1 MG Tab PO SCH (21:00)
[2017-09-14] MEDS: Triamcinolone Acetonide 0.1% Crm 15 GM Tube TOP SCH (21:04)
[2017-09-15] MEDS ORDERED: Furosemide 20 MG/2 ML VIAL IVPUSH ONE (00:30)
[2017-09-15] MEDS ORDERED: Pantoprazole 40 MG Vial IVPUSH ONE (00:30)
[2017-09-15] MEDS: Pantoprazole 40 MG Vial IVPUSH SCH ×2 (00:43→10:43)
[2017-09-15] MEDS ORDERED: Pantoprazole 40 MG Vial IVPUSH SCH (01:00)
[2017-09-15] MEDS: Sucralfate Suspension 1 GM/10 ML Cup PO SCH ×3 (05:30→16:20)
[2017-09-15] MEDS ORDERED: Hydroxyurea 500 MG Cap PO SCH (09:00)
[2017-09-15] MEDS ORDERED: Magnesium Sulfate/Water 2 GM in Premix Bag 1 BAG IV ONE (09:18)
[2017-09-15] MEDS: Triamcinolone Acetonide 0.1% Crm 15 GM Tube TOP SCH (10:47)
[2017-09-15] MEDS ORDERED: Iopamidol 612 MG/ML 150 ML Bottle IVPUSH ONE (12:34)
[2017-09-15] MEDS ORDERED: Diatrizoate Meglumine/Diatrizoate Sodium 37% 120 ML Bottle PO ONE (12:34)
[2017-09-15] MEDS ORDERED: Sodium Chloride 0.9% 10 ML Syringe FLUSH PRN (12:34)
--- NOTE | 2017-09-15 13:40 | CT ---
CT abdomen and pelvis Technique: Multiple axial sections were obtained from above the dome of the diaphragm inferiorly through the pubic symphysis. Intravenous and oral contrast was utilized. Delayed images were also obtained through the abdomen and pelvis. Comparison: No prior abdominal imaging. Findings: Large hiatal hernia is seen. Visualized lung bases are clear. Liver shows no focal parenchymal abnormality. Spleen appears normal. Adrenal glands show no nodule. Pancreas appears normal. Kidneys show symmetric contrast enhancement. Cyst is noted within the left kidney measuring 2.7 cm. Delayed images shows contrast throughout the ureters into the bladder. Aorta shows atherosclerotic change without aneurysmal dilatation. Atherosclerotic change continues into the iliac vessels. No retroperitoneal adenopathy or mesenteric abnormalities are seen. No pelvic mass or adenopathy is seen. Enhancing lesion is seen within the uterus measuring about 3.7 cm most likely representing uterine fibroid. 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 Bone window settings were reviewed showing slight scoliosis and degenerative change within the spine. Impression: 1. Small soft tissue nodule projecting into the lumen of the duodenal sweep, please correlate if this represents the patient's known duodenal tumor. 2. Large hiatal hernia. 3. Probable 3.7 cm fibroid within the uterus. 4. Other incidental findings. No metastatic disease is identified. Diagnostic code #3
--- NOTE | 2017-09-15 14:12 | PCM.DCSUM1 ---
Discharge Summary - Hospital Course Free Text/Narrative:: Shannon Mejia is a 77 yo female who went for a visit with here PCP, Dr. Hernandez at today (09/14/17). She was reportedly following up after being seen in the ED in June 2017 for lightheadedness and a negative Holter monitor after ED discharge. She reported to him having lightheadedness, melonic stools lower abdominal pain, palpitations, and nausea since yesterday (09/03/17) . She has not vomited. She also reports a 2 day history of dyspnea on exertion. She denies any chest pain, history of melonic or bloody stools, or prior similar symptoms. It is reported that Dr. Hernandez found her to have stable BP between lying and standing but her HR did increase. Labs were drawn at [place] and presented with the patient. WBC was .2. Hemoglobin was 8.0, hematocrit 23.5. She is macrocytic. Platelet surgery to 329,000, neutrophils are normal at 64%. Lipid panel was obtained total cholesterol is 85, triglyceride 150, HDL is low at 26, LDL is good at 29. BMP was obtained shows a glucose at 124. BUN is high at 40. Creatinine 0.6. EGFR 64. Sodium 139. Potassium 3.9. Chloride 110. CO2 is 28. Anion gap is 5. Calcium 8.6. In the ED temp was 36.1 C. Pulse 75. Respirations 18. BP 149/66. Pulse ox 98%. She was given 80 mg IV protonix bolus and started on a 80mg protonix drip. Type and screen was preformed. Dr. Flores, general surgeon took the patient back to the endoscopy room and a EGD was preformed. Multiple bleeding lesions were identified and biopsies were obtained. Colonoscopy was not preformed as bleeding location was located. She does carry a history of: impaired vision, CAD, HLD, HTN, Sleep apnea on home CPAP, GERD, prolapsed uterus, obesity, essential thrombocytosis, right breast cancer, CABG x3 in 2004. She was never a smoker. She reports having her last colonoscopy around 10 years ago and having had EGDs in the past. She reports these were essentially normal although she has had polyps removed in the past. She states at one time she was having endoscopy every three years, which decreased to every five, and now have been longer. These were all preformed in [facility]. She was never a smoker. She was subsequently admitted to the medical floor under observation status with telemetry. She is a full code. Her PCP is Dr. Hernandez at [facility] although she does report seeing some specialists in [place] and [place]. - Discharge Data Discharge Date: 09/15/17 Discharge Disposition: Home, Self-Care 01 Condition: Good - Patient Summary/Data Consults: Consultations 09/14/17 15:43 Consult to Physician [CONS] Routine 09/14/17 16:16 Consult to Track Leader [CONS] Routine Consult to Spiritual Care [CONS] Routine OT Evaluation and Treatment [CONS] Routine PT Evaluation and Treatment [CONS] Routine 09/14/17 17:14 Consult to Case Management [CONS] Routine - Patient Instructions Diet: Heart Healthy Diet Activity: As Tolerated Driving: Do Not Drive Showering/Bathing: May Shower Notify Provider of: Fever, Increased Pain, Nausea and/or Vomiting - Discharge Plan Prescriptions/Med Rec: Sucralfate [Carafate] 1 gm PO Q6H #1200 cup Home Medications: Home Meds Anastrozole [Arimidex] 1 mg PO BEDTIME 07/04/17 [History] Calcium Carb & Citrate/Vit D3 [Calcium + D3 ER Tablet] 1 tab PO BID 07/04/17 [ History] Ezetimibe [Zetia] 10 mg PO DAILY 07/04/17 [History] Ferrous Sulfate [Iron] 325 mg PO BEDTIME 07/04/17 [History] Fish Oil/Douglas-3 Fatty Acids [Fish Oil 1,000 MG] 1 gram PO DAILY 07/04/17 [ History] Hydroxyurea 1,000 mg PO Q48H 07/04/17 [History] Metoprolol Succinate [Toprol XL] 50 mg PO BEDTIME 07/04/17 [History] Mv-Mn/Lutein/Zeax/Bilber/Hb277 [Macular Health Formula Capsule] 1 cap PO DAILY 07/04/17 [History] Olmesartan/Hydrochlorothiazide [Benicar HCT 40-25 MG] 1 tab PO DAILY 07/04/17 [ History] Omeprazole Magnesium [Prilosec Otc] 20 mg PO BID 07/04/17 [History] amLODIPine Besylate [Norvasc] 10 mg PO BEDTIME 07/04/17 [History] atorvaSTATin [Lipitor] 40 mg PO BEDTIME 07/04/17 [History] Hydroxyurea [Hydrea] 1,500 mg PO Q48H 09/14/17 [History] Triamcinolone Acetonide [Kenalog 0.1% Crm] 1 applic TOP BID 09/14/17 [History] Sucralfate [Carafate] 1 gm PO Q6H #1200 cup 09/15/17 [Rx] Patient Handouts: Upper Gastrointestinal Bleeding, Gastrointestinal Bleeding, [id number] Referrals: Benjamin Hernandez MD [Primary Care Provider] - (Call the clinic on Sunday to schedule a follow-up appointment as soon as you can get in. ) - Discharge Summary/Plan Comment DC Time >30 min.: No Discharge Summary/Plan Comment: Acute: Upper GI Bleed -Reports weakness, fatigue, abdominal pain, and melonic stools over past 2 days -Patient went to see Dr. Hernandez at [facility] (09/14/17) and labs were drawn -Hgb 8.0--->received 2 units PRBCs, Hgb >9.0 and stable -Hct 23.5 -Dr. Flores consulted in ED - EGD preformed 09/14/17 with multiple bleeding lesions noted, biopsies taken; CT of abdomen/pelvis documented duodenal tumor; path report is pending -PT/INR/APTT ordered -Clear liquid diet-->heart healthy diet was tolerated. -Protonix IV -Carafate as ordered -Dr. Flores consulted -Hold ASA Anemia -2/2 above -Reports H/H in june and -Type and screen in ED -2 units to be transfused 09/14/17 -20mg IVP lasix after each unit -Monitor AM labs Chronic: CAD HLD HTN Sleep apnea on home CPAP GERD Prolapsed uterus Obesity Essential thrombocytosis with prior blood transfusions Right breast cancer - on hydroxyurea and anastrozole currently CABG x3 in 2004 Plan: Admit to medical floor, observation status on telemetry PT/OT SW/CM for discharge planning Routine AM labs Other orders as indicated above Spiritual care consult DVT/PE prophylaxis: SCDs GI prophylaxis: PPIs Code Status: Full Code; PCP: Dr. Hernandez at . She does see several specialists from [place] and [place] as well. Follow up with PCP, additional care to be determined after the path report. ASA is being held secondary to UGI bleed. CT of abdomen/pelvis was performed pre discharge. Additional CC's: Benjamin Hernandez - General Info Date of Service: 09/14/17 Functional Status: Reports: Tolerating Diet, Ambulating, Urinating - Review of Systems General: Reports: No Symptoms HEENT: Reports: No Symptoms Pulmonary: Reports: No Symptoms Cardiovascular: Reports: No Symptoms Gastrointestinal: Reports: No Symptoms Genitourinary: Reports: No Symptoms Musculoskeletal: Reports: No Symptoms Skin: Reports: No Symptoms Neurological: Reports: No Symptoms Psychiatric: Reports: No Symptoms - Patient Data Vitals - Most Recent: Last Vital Signs Temp 36.7 C 09/15/17 12:03 Pulse 56 L 09/15/17 12:03 Resp 15 09/15/17 12:03 BP 138/50 L 09/15/17 12:03 Pulse Ox 96 09/15/17 12:03 Weight - Most Recent: 96.479 kg I&O - Last 24 hours: Intake & Output 09/14/17 09/15/17 09/15/17 22:59 06:59 14:59 Intake Total 1470 1160 540 Balance 1470 1160 540 Lab Results - Last 24 hrs: Laboratory Results - last 24 hr 09/14/17 09/14/17 09/14/17 Range/Units 11:56 17:30 17:30 WBC (3.98-10.04) K/mm3 RBC (3.98-5.22) M/mm3 Hgb (11.2-15.7) gm/L Hct (34.1-44.9) % MCV (79.4-94.8) fl MCH (25.6-32.2) pg MCHC (32.2-35.5) g/dl RDW Std Deviation (36.4-46.3) fL Plt Count (182-369) K/mm3 MPV (9.4-12.3) fl Neut % (Auto) (34.0-71.1) % Lymph % (Auto) (19.3-51.7) % [place] % (Auto) (4.7-12.5) % Eos % (Auto) (0.7-5.8) Baso % (Auto) (0.1-1.2) % Neut # (Auto) (1.56-6.13) K/mm3 Lymph # (Auto) (1.18-3.74) K/mm3 [place] # (Auto) (0.24-0.36) K/mm3 Eos # (Auto) (0.04-0.36) K/mm3 Baso # (Auto) (0.01-0.08) K/mm3 Manual Slide Review PT 11.4 (8.0-13.0) SECONDS INR 1.06 APTT 25 (22-36) SECONDS Sodium (136-145) mEq/L Potassium (3.5-5.1) mEq/L Chloride (98-107) mEq/L Carbon Dioxide (21-32) mEq/L Anion Gap (5-15) BUN (7-18) mg/dL Creatinine (0.55-1.02) mg/dL Est Cr Clr Drug Dosing mL/min Estimated GFR (MDRD) (>60) mL/min BUN/Creatinine Ratio (14-18) Glucose (83-115) mg/dL Calcium (8.5-10.1) mg/dL Magnesium 1.9 (1.8-2.4) mg/dl C-Reactive Protein (<1.0) mg/dL NT-Pro-B Natriuret Pep (0-450) pg/mL Blood Type A POSITIVE Gel Antibody Screen Negative Crossmatch See Detail 09/14/17 09/15/17 09/15/17 Range/Units 17:30 05:40 05:40 WBC 4.27 (3.98-10.04) K/mm3 RBC 2.17 L (3.98-5.22) M/mm3 Hgb 8.3 L (11.2-15.7) gm/L Hct 24.7 L (34.1-44.9) % MCV 113.8 H (79.4-94.8) fl MCH 38.2 H (25.6-32.2) pg MCHC 33.6 (32.2-35.5) g/dl RDW Std Deviation 71.0 H (36.4-46.3) fL Plt Count 277 (182-369) K/mm3 MPV 10.3 (9.4-12.3) fl Neut % (Auto) 61.4 (34.0-71.1) % Lymph % (Auto) 17.8 L (19.3-51.7) % [place] % (Auto) 18.7 H (4.7-12.5) % Eos % (Auto) 1.4 (0.7-5.8) Baso % (Auto) 0.5 (0.1-1.2) % Neut # (Auto) 2.62 (1.56-6.13) K/mm3 Lymph # (Auto) 0.76 L (1.18-3.74) K/mm3 [place] # (Auto) 0.80 H (0.24-0.36) K/mm3 Eos # (Auto) 0.06 (0.04-0.36) K/mm3 Baso # (Auto) 0.02 (0.01-0.08) K/mm3 Manual Slide Review Abnormal smear PT (8.0-13.0) SECONDS INR APTT (22-36) SECONDS Sodium 147 H (136-145) mEq/L Potassium 3.9 (3.5-5.1) mEq/L Chloride 109 H (98-107) mEq/L Carbon Dioxide 30 (21-32) mEq/L Anion Gap 11.9 (5-15) BUN 35 H (7-18) mg/dL Creatinine 0.8 (0.55-1.02) mg/dL Est Cr Clr Drug Dosing 54.67 mL/min Estimated GFR (MDRD) > 60 (>60) mL/min BUN/Creatinine Ratio 43.8 H (14-18) Glucose 113 (83-115) mg/dL Calcium 7.9 L (8.5-10.1) mg/dL Magnesium 1.8 (1.8-2.4) mg/dl C-Reactive Protein < 0.2 (<1.0) mg/dL NT-Pro-B Natriuret Pep 49 (0-450) pg/mL Blood Type Gel Antibody Screen Crossmatch 09/15/17 09/15/17 Range/Units 05:40 09:30 WBC (3.98-10.04) K/mm3 RBC (3.98-5.22) M/mm3 Hgb 9.2 L (11.2-15.7) gm/L Hct 27.0 L (34.1-44.9) % MCV (79.4-94.8) fl MCH (25.6-32.2) pg MCHC (32.2-35.5) g/dl RDW Std Deviation (36.4-46.3) fL Plt Count (182-369) K/mm3 MPV (9.4-12.3) fl Neut % (Auto) (34.0-71.1) % Lymph % (Auto) (19.3-51.7) % [place] % (Auto) (4.7-12.5) % Eos % (Auto) (0.7-5.8) Baso % (Auto) (0.1-1.2) % Neut # (Auto) (1.56-6.13) K/mm3 Lymph # (Auto) (1.18-3.74) K/mm3 [place] # (Auto) (0.24-0.36) K/mm3 Eos # (Auto) (0.04-0.36) K/mm3 Baso # (Auto) (0.01-0.08) K/mm3 Manual Slide Review PT (8.0-13.0) SECONDS INR APTT (22-36) SECONDS Sodium (136-145) mEq/L Potassium (3.5-5.1) mEq/L Chloride (98-107) mEq/L Carbon Dioxide (21-32) mEq/L Anion Gap (5-15) BUN (7-18) mg/dL Creatinine (0.55-1.02) mg/dL Est Cr Clr Drug Dosing mL/min Estimated GFR (MDRD) (>60) mL/min BUN/Creatinine Ratio (14-18) Glucose (83-115) mg/dL Calcium (8.5-10.1) mg/dL Magnesium (1.8-2.4) mg/dl C-Reactive Protein (<1.0) mg/dL NT-Pro-B Natriuret Pep 100 (0-450) pg/mL Blood Type Gel Antibody Screen Crossmatch Med Orders - Current: Current Medications Albuterol/Ipratropium (Duoneb 3.0-0.5 Mg/3 Ml) 3 ml NEB Q4H PRN PRN Reason: Shortness Of Breath/wheezing Amlodipine Besylate (Norvasc) 10 mg PO BEDTIME KATINA Last Admin: 09/14/17 21:03 Dose: 10 mg Anastrozole (Arimidex) 1 mg PO BEDTIME KATINA Last Admin: 03/30/18 21:03 Dose: Not Given Ferrous Sulfate (Ferrous Sulfate) 325 mg PO BEDTIME [facility] Last Admin: 09/14/17 21:02 Dose: 325 mg Hydralazine HCl (Apresoline) 10 mg IVPUSH Q6H PRN PRN Reason: Hypertension Hydroxyurea (Hydrea) 1,500 mg PO SuSa@0900 [facility] Last Admin: 09/15/17 10:41 Dose: 1,500 mg Hydroxyurea (Hydrea) 1,000 mg PO MoTuWeThFr@0900 [facility] Sodium Chloride (Normal Saline) 250 mls @ 100 mls/hr IV ASDIRECTED [facility] Last Admin: 09/14/17 17:13 Dose: 100 mls/hr Metoprolol Succinate (Toprol Xl) 50 mg PO BEDTIME [facility] Last Admin: 09/14/17 21:01 Dose: 50 mg Metoprolol Tartrate (Lopressor) 5 mg IVPUSH Q4H PRN PRN Reason: Tachycardia Ondansetron HCl (Zofran Odt) 4 mg PO Q6H PRN PRN Reason: nausea, able to take PO Ondansetron HCl (Zofran) 4 mg IV Q6H PRN PRN Reason: Nausea/Vomiting Pantoprazole Sodium (Protonix Iv) 40 mg IVPUSH BID [facility] Last Admin: 09/15/17 10:43 Dose: 40 mg Sodium Chloride (Saline Flush) 10 ml FLUSH ONETIME PRN PRN Reason: IV FLUSH Last Admin: 09/15/17 13:07 Dose: 10 ml Sucralfate (Carafate) 1 gm PO Q6H [facility] Last Admin: 09/15/17 10:34 Dose: 1 gm Triamcinolone Acetonide (Triamcinolone Acetonide 0.1% Crm) 0 gm TOP BID [facility] Last Admin: 09/15/17 10:47 Dose: Not Given Discontinued Medications Diatrizoate Meglum/Diatrizoate Sod (Gastrografin 37%) 90 ml PO ONETIME ONE Stop: 09/15/17 12:35 Last Admin: 09/15/17 13:07 Dose: 90 ml Fentanyl (Sublimaze) Confirm Administered Dose 100 mcg .ROUTE .STK-MED ONE Stop: 09/14/17 13:34 Furosemide (Lasix) 20 mg IVPUSH ONETIME ONE Stop: 09/14/17 19:08 Last Admin: 09/14/17 20:58 Dose: 20 mg Furosemide (Lasix) 20 mg IVPUSH ONETIME ONE Stop: 09/15/17 00:31 Last Admin: 09/15/17 00:41 Dose: 20 mg Pantoprazole Sodium 80 mg/ (Sodium Chloride) 100 mls @ 10 mls/hr IV Q10H [facility]ATINA Last Admin: 09/14/17 12:25 Dose: 8 mg/hr, 10 mls/hr Lidocaine HCl (Xylocaine-Mpf 1%) Confirm Administered Dose 4 mls @ as directed .ROUTE .STK-MED ONE Stop: 09/14/17 13:34 Lactated Ringer's (Ringers, Lactated) Confirm Administered Dose 1,000 mls @ as directed .ROUTE .STK-MED ONE Stop: 09/14/17 13:39 Magnesium Sulfate 2 gm/ Premix 50 mls @ 25 mls/hr IV ONETIME ONE Stop: 09/15/17 11:17 Last Admin: 09/15/17 10:50 Dose: 25 mls/hr Iopamidol (Isovue-300 (61%)) 125 ml IVPUSH ONETIME ONE Stop: 09/15/17 12:35 Last Admin: 09/15/17 13:07 Dose: 125 ml Magnesium Oxide (Magnesium Oxide) 400 mg PO ONETIME ONE Stop: 09/14/17 19:34 Last Admin: 09/14/17 21:01 Dose: 400 mg Ondansetron HCl (Zofran) Confirm Administered Dose 4 mg .ROUTE .STK-MED ONE Stop: 09/14/17 14:19 Pantoprazole Sodium (Protonix Iv) 80 mg IVPUSH .BOLUS ONE Stop: 09/14/17 11:30 Last Admin: 09/14/17 12:24 Dose: 80 mg Pantoprazole Sodium (Protonix Iv) 40 mg IVPUSH Q12H KATINA Pantoprazole Sodium (Protonix Iv) 40 mg IVPUSH Q12H [facility]ATINA Last Admin: 09/15/17 08:33 Dose: Not Given Pantoprazole Sodium (Protonix Iv) 40 mg IVPUSH ONETIME ONE Stop: 09/15/17 00:31 Last Admin: 09/15/17 00:41 Dose: 40 mg Propofol (Diprivan 20 Ml) Confirm Administered Dose 400 mg .ROUTE .K-MED ONE Stop: 09/14/17 13:34 - Exam Quality Assessment: Reports: DVT Prophylaxis General: Reports: Alert, Oriented, Cooperative, No Acute Distress HEENT: Reports: Pupils Equal, Pupils Reactive, EOMI Neck: Reports: Supple, Trachea Midline, No JVD Lungs: Reports: Normal Respiratory Effort Cardiovascular: Reports: Regular Rate, Regular Rhythm GI/Abdominal Exam: Normal Bowel Sounds, Soft, Non-Tender, No Organomegaly, No Distention (Female) Exam: Deferred Rectal (Female) Exam: Deferred Back Exam: Reports: Normal Inspection Extremities: Normal Inspection, Normal Range of Motion, Non-Tender, No Pedal Edema Skin: Reports: Warm Neurological: Reports: No New Focal Deficit Psy/Mental Status: Reports: Alert, Normal Affect, Normal Mood
--- NOTE | 2017-09-17 06:41 | PN ---
DATE OF SERVICE: 09/15/2017 HISTORY OF PRESENT ILLNESS: This is postoperative day #1. Shannon Mejia is a very pleasant 77-year-old female that I was able to do an upper endoscopy on yesterday for a GI bleed. On that exam, I clearly found what is very highly suspicious for carcinoma of the stomach. Multiple biopsies were taken. Since that time, she has had no episodes of hypotension. She received 2 units of blood and her hemoglobin this morning is above 9. She was actually ambulating in the crump without difficulty. The patient herself states that she feels great. Her vital signs have been remaining stable. I's and O's is that she is eating without difficulty. The balance is about 2 L out. PHYSICAL EXAMINATION: GENERAL: Alert and oriented. VITAL SIGNS: She is not tachycardiac. I have reviewed her vital signs. ABDOMEN: Soft. Her is at the bedside. I again had the opportunity to discuss the findings of the exam. Clearly, I was very open with them that we are very worried that this could indeed be a tumor. We discussed the situation. At first, we are going to do a CT scan of her abdomen and pelvis today to see if there are any other signs of tumors growth. Hopefully she will continue to remain stable and not have any need for an additional transfusion. If she has a major bleed again that would be a such situation, where we would have to think about surgery. But hopefully at this point, she remains quite good. Dr. Chavira is in agreement and she will go ahead and the patient creatinine is less than 1 and we will hopefully get that examination done here today. As long as she remains stable, we will continue with nonoperative therapy. MMODAL /[id number]
--- NOTE | 2017-09-17 06:47 | OR ---
DATE OF OPERATION: 09/14/2017 SURGEON: Leona Flores MD PREOPERATIVE DIAGNOSIS: Gastrointestinal bleed. POSTOPERATIVE DIAGNOSIS: Upper gastrointestinal bleed due to multiple bleeding polyps, questionable mass, and ulcerated mass. OPERATION PERFORMED: Upper endoscopy with biopsy of 3 of the large polyps/mass as well as biopsy for Helicobacter pylori. ANESTHESIA: IV sedation. ESTIMATED BLOOD LOSS: None. BRIEF HISTORY: This is a most pleasant female who arrived here with status post GI bleed. She has been hemodynamically stable and we were able to discuss the risks and benefits. I had the opportunity then to discuss this both with her family, with her, and her . DESCRIPTION OF PROCEDURE: The patient was taken to the operating room, IV sedation was begun, and she was placed with her left side down. A bite-block was placed and I was able to gently passed the scope. Her epiglottis and her cords all looked fine. The esophagus was free of any induration and I was able to see the GE junction. There was no blood in this area. As soon as I entered the intragastric area, clearly I could see she had multiple polyps throughout the stomach, but in the distal portion and in the antrum was almost a whole clump of polyps that were ulcerated. There was also another one that was a big stock and had an ulceration. There was at least 6 of these I could see that actually had been bleeding in the past. I was able to pass the scope into the pylorus and actually just at the duodenal bulb, there was another polyp, but this looked very small. There was no active blood in the GI tract at this time. I was able to retroflex the scope and see that the fundus and the greater curvature appeared to be free of any polyps and she just had may be a small hiatal hernia. I then went back and as stated went ahead and did several biopsies of these areas. On coming out, again I did not see any other gross abnormalities and clearly think we have the cause of her GI bleed is upper and is from the relationship of the multiple polyps/questionable mass. She tolerated the procedure well. MMODAL /[id number]
--- NOTE | 2017-09-17 06:54 | OR ---
DATE OF OPERATION: 09/14/2017 SURGEON: Leona Flores MD PREOPERATIVE DIAGNOSIS: Upper gastrointestinal bleed. POSTOPERATIVE DIAGNOSIS: Upper gastrointestinal bleed secondary to multiple gastric polyps, questionable cancer. OPERATION PERFORMED: Upper endoscopy. ANESTHESIA: IV sedation. ESTIMATED BLOOD LOSS: None acutely. Biopsies taken: Yes. BRIEF HISTORY: Shannon Mejia is a 77-year-old female who was evaluated because of repeated black tarry stools. She was also noted to be anemic. The patient stated she had a normal colonoscopy and upper endoscopy many years ago. I had the opportunity to discuss the risks and benefits and she agreed to proceed. DESCRIPTION OF PROCEDURE: The patient was taken to the operative suite. IV sedation was begun after we had done a time-out. At this point, a bite-block was placed. I was able to easily pass the scope and evaluate the vocal cords which were clean. I was able to pass the scope into the upper esophagus and all the way down to the GE junction which did not demonstrate any ulcerations or changes. Of note, there was no blood. When I advanced the scope in to the stomach, initially there was no blood. As I further distended the stomach, clearly there was massive amount of small polyps and then there was a wadded mass of ulcerating polyps. There was also a very large pedunculated polyp just proximal to the pylorus. I was able to negotiate the scope in to the pylorus and in to the duodenum. There was no blood noted in the duodenum. The mucosa itself was fine and there was may be just a tiny little polyp distal to the pylorus. At this point in time, I had to decide where I was going to take the biopsy of this very ragged surface. So on one of the polyp that was pedunculated polyp with an ulcerated top, I took a biopsy of that base and then where those the matted mass of polyps, or what appears to be polyps or tumor, I took some random biopsies. I also went ahead and took a random biopsy of normal mucosa. I retroflexed the scope. I could appreciate that she did have a hiatal hernia. The fundus itself looked okay with and benign polyps and there were otherwise no ulcerations. When I pulled the scope back, there was no active bleeding but I could appreciate that this probably where the bleed had occurred. I then came back in to the esophagus and back up. We did not go further with the lower endoscopy as I do feel that this is the cause of the bleeding. Pictures were taken and I will share this information with the . MMODAL /[id number]
[2017-09-17] MEDS ORDERED: Hydroxyurea 500 MG Cap PO SCH (09:00)
== END 2017-09-15 16:30 | disposition home or self-care (01) ==
LOC: JD.ED 10:37 → JD.SDS 11:59 → JD.MS 15:33
PROVIDERS: ADMIT Internal Medicine Cardiovascular Disease; ATTEND Internal Medicine Cardiovascular Disease
DX: K29.50 Unspecified chronic gastritis without bleeding (principal); K31.7 Polyp of stomach and duodenum; I25.10 Atherosclerotic heart disease of native coronary artery without angina pectoris; I10 Essential (primary) hypertension; E78.00 Pure hypercholesterolemia, unspecified; G47.30 Sleep apnea, unspecified; K21.9 Gastro-esophageal reflux disease without esophagitis; E66.9 Obesity, unspecified; Z79.82 Long term (current) use of aspirin; Z79.899 Other long term (current) drug therapy; Z68.30 Body mass index [BMI] 30.0-30.9, adult
CPT/HCPCS: 36415; 36430; 43239; 74177; 80048; 82378; 83735; 83880; 85014; 85018; 85025; 85610; 85730; 86140; 86850; 86900; 86901; 86922; 96365; 96375; 96376; 97161; 99285; A9270; C9113; G0378; J2405; J3010; J7030; J7050; J7120; P9016; Q9963; Q9967; 00731; 88305; 99284; J2704; J3475